=== PATIENT | male | born 2000 | race Caucasian/White ===

== ENCOUNTER 2023-03-29 09:47 | Outpatient (CLI) | payer OTHER, SELFPAY ==
[2023-03-29 12:40] LABS: Alanine Aminotransferase 92 U/L (6-50); Albumin Level 4.4 g/dL (3.5-5.1); Alkaline Phosphatase 74 U/L (38-126); Anion Gap 4 mmol/L (8-16); Aspartate Amino Transferase 96 U/L (17-59); Bilirubin,Total 1.1 mg/dL (0.2-1.3); Blood Urea Nitrogen 24 mg/dL (9-20); Calcium 9.2 mg/dL (8.4-10.2); Carbon Dioxide 33 mmol/L (22-30); Chloride 102 mmol/L (98-107); Cholesterol 212 mg/dL (0-200); Estimated Glomerular Filt Rate > 60; Glucose 86 mg/dL (65-110); HDL Direct 48 mg/dL; Potassium 3.8 mmol/L (3.4-5.0); Sodium 139 mmol/L (137-145); Triglycerides 93 mg/dL (<150)
[2023-03-29 12:51] LABS: LDL Cholesterol Direct 121 mg/dL
[2023-03-29 12:58] LABS: Creatinine Urine 199.4 mg/dL
[2023-03-29 13:03] LABS: MALB Creatinine Ratio 8.6 mg/g (0-30); Microalbumin Urine Random 17.2 mg/L (0-16.7)
== END 2023-03-29 09:48 | disposition home or self-care (01) ==
LOC: ANHWCLAB 09:48
PROVIDERS: PCP Family Medicine Adolescent Medicine; Visit Provider Internal Medicine Endocrinology, Diabetes & Metabolism
DX: E10.9 Type 1 diabetes mellitus without complications (principal); Z71.3 Dietary counseling and surveillance
CPT/HCPCS: 36415; 80053; 80061; 82043; 84443